=== PATIENT | male | born 1975 | race Caucasian/White ===

== ENCOUNTER 2023-11-27 13:23 | Inpatient (IN) | payer BC ==
--- OUTSIDE RECORDS SUMMARY | 2023-11-27 13:26 | XMS REPORT | Continuity of Care Document ---
Author Name Unknown Address [address] [place], [place] [id number] [facility] thconnect Address [address] [place] [address] [address] [place] [address] Care Team Providers Care [employer] Engraver Hand Name Role Phone AMA Attending Clinician Unavailable ANUP Attending Clinician Unavailable AMA Admitting Clinician Unavailable ANUP Admitting Clinician Unavailable Payers Payer Name Policy Type Policy Number Effective Date Expirati on Date Source [place] [id number] 2020 00:00:00 Problems Condition Name Condition Details Condition Category Status Onset Date Resolution Date Last Treatment Date Treating Clinician Comments Source Tobacco user Tobacco User Problem Active 2018-11 00:00: 00 [facility] Type 1 diabetes mellitus Type 1 Diabetes Mellitus Problem Active [facility] Bipolar disorder Bipolar Disorder Problem Active [facility] Allergies, Adverse Reactions, Alerts Allergy Name Allergy Type Status Severity Reaction(s) Onset Date Inactive Date Treating Clinician Comments Source Amoxicil shima Allergy to substanc e Active Moderate Itching [facility] Metoprol ol Allergy to substanc e Active Moderate Itching [facility] Social History Smoking Status Start Date Stop Date Source Light Tobacco Smoker [facility] Medications Ordered Medication Name Filled Medication Name Start Date Stop Date Current Medication? Ordering Clinician Indication Dosage Frequency Signature (SIG) Comments Components Source sildenafil 100 mg tablet TAKE 1 TABLET BY MOUTH 30 MINUTES PRIOR TO SEXUAL ACTIVITY; NO MORE THAN 1 IN 24 HRS sildenafil 100 mg tablet TAKE 1 TABLET BY MOUTH 30 MINUTES PRIOR TO SEXUAL ACTIVITY; NO MORE THAN 1 IN 24 HRS No sildenafil 100 mg tablet TAKE 1 TABLET BY MOUTH 30 MINUTES PRIOR TO SEXUAL ACTIVITY; NO MORE THAN 1 IN 24 HRS [facility] Tresiba FlexTouch U-100 insulin 100 unit/mL (3 mL) subcutaneou s pen ADMINISTER 20 UNITS UNDER THE SKIN EVERY DAY Tresiba FlexTouch U-100 insulin 100 unit/mL (3 mL) subcutaneou s pen ADMINISTER 20 UNITS UNDER THE SKIN EVERY DAY No Tresiba FlexTouch U-100 insulin 100 unit/mL (3 mL) subcutaneo us pen ADMINISTER 20 UNITS UNDER THE SKIN EVERY DAY [facility] enalapril maleate 10 mg tablet TAKE 1 TABLET(S) EVERY DAY BY ORAL ROUTE. enalapril maleate 10 mg tablet TAKE 1 TABLET(S) EVERY DAY BY ORAL ROUTE. No enalapril maleate 10 mg tablet TAKE 1 TABLET(S) EVERY DAY BY ORAL ROUTE. [facility] Novolog Flexpen U-100 Insulin aspart 100 unit/mL (3 mL) subcutaneou s ADMINISTER 15 UNITS UNDER THE SKIN THREE TIMES DAILY BEFORE MEALS PER SLIDING SCALE Novolog Flexpen U-100 Insulin aspart 100 unit/mL (3 mL) subcutaneou s ADMINISTER 15 UNITS UNDER THE SKIN THREE TIMES DAILY BEFORE MEALS PER SLIDING SCALE No Novolog Flexpen U-100 Insulin aspart 100 unit/mL (3 mL) subcutaneo us ADMINISTER 15 UNITS UNDER THE SKIN THREE TIMES DAILY BEFORE MEALS PER SLIDING SCALE [facility] sildenafil 100 mg tablet TAKE 1 TABLET BY MOUTH 30 MINUTES PRIOR TO SEXUAL ACTIVITY; NO MORE THAN 1 IN 24 HRS sildenafil 100 mg tablet TAKE 1 TABLET BY MOUTH 30 MINUTES PRIOR TO SEXUAL ACTIVITY; NO MORE THAN 1 IN 24 HRS No sildenafil 100 mg tablet TAKE 1 TABLET BY MOUTH 30 MINUTES PRIOR TO SEXUAL ACTIVITY; NO MORE THAN 1 IN 24 HRS [facility] Tresiba FlexTouch U-100 insulin 100 unit/mL (3 mL) subcutaneou s pen ADMINISTER 20 UNITS UNDER THE SKIN EVERY DAY Tresiba FlexTouch U-100 insulin 100 unit/mL (3 mL) subcutaneou s pen ADMINISTER 20 UNITS UNDER THE SKIN EVERY DAY No Tresiba FlexTouch U-100 insulin 100 unit/mL (3 mL) subcutaneo us pen ADMINISTER 20 UNITS UNDER THE SKIN EVERY DAY [facility] enalapril maleate 10 mg tablet TAKE 1 TABLET(S) EVERY DAY BY ORAL ROUTE. enalapril maleate 10 mg tablet TAKE 1 TABLET(S) EVERY DAY BY ORAL ROUTE. No enalapril maleate 10 mg tablet TAKE 1 TABLET(S) EVERY DAY BY ORAL ROUTE. [facility] Novolog FlexPen U-100 Insulin aspart 100 unit/mL (3 mL) subcutaneou s ADMINISTER 15 UNITS UNDER THE SKIN THREE TIMES DAILY BEFORE MEALS PER SLIDING SCALE Novolog FlexPen U-100 Insulin aspart 100 unit/mL (3 mL) subcutaneou s ADMINISTER 15 UNITS UNDER THE SKIN THREE TIMES DAILY BEFORE MEALS PER SLIDING SCALE No Novolog FlexPen U-100 Insulin aspart 100 unit/mL (3 mL) subcutaneo us ADMINISTER 15 UNITS UNDER THE SKIN THREE TIMES DAILY BEFORE MEALS PER SLIDING SCALE [facility] Vital Signs Vital Name Observation Time Observation Value Comments S ource BP Diastolic 2023-04-22 00:00:00 85 mm[Hg] Johnathan lockhartrda [facility] Height 2023-04-22 00:00:00 70 [in_i] Lv orda [facility] BMI (Body Mass Index) 2023-04-22 00:00:00 22.5 kg/m2 [facility] BP Systolic 2023-04-22 00:00:00 136 mm[Hg] Karthikeyan pereza [facility] Body Weight 2023-04-22 00:00:00 2512 [oz_av] Hi chasea [facility] BP Diastolic 2022-03-25 00:00:00 80 mm[Hg] Johnathan lockhartrda [facility] Height 2022-03-25 00:00:00 70 [in_i] Lv orda [facility] BMI (Body Mass Index) 2022-03-25 00:00:00 22.3 kg/m2 [facility] BP Systolic 2022-03-25 00:00:00 133 mm[Hg] Karthikeyan pereza [facility] Body Weight 2022-03-25 00:00:00 2488 [oz_av] Hi tagorda [facility] BP Diastolic 2021-10-08 00:00:00 90 mm[Hg] [place] Height 2021-10-08 00:00:00 70 [in_i] [facility] BMI (Body Mass Index) 2021-10-08 00:00:00 22.5 kg/m2 [facility] BP Systolic 2021-10-08 00:00:00 150 mm[Hg] Napier alfonzo [facility] Body Weight 2021-10-08 00:00:00 2505.6 [oz_av] [place] [facility] BP Diastolic 2021-01-04 00:00:00 86 mm[Hg] [place] Height 2021-01-04 00:00:00 70 [in_i] [facility] BMI (Body Mass Index) 2021-01-04 00:00:00 23.1 kg/m2 [facility] BP Systolic 2021-01-04 00:00:00 151 mm[Hg] Napier alfonzo [facility] Body Weight 2021-01-04 00:00:00 2576 [oz_av] Hi tag[place]a [facility] BP Diastolic 2019-10-17 00:00:00 78 mm[Hg] [place] [facility] Height 2019-10-17 00:00:00 70 [in_i] [facility] BMI (Body Mass Index) 2019-10-17 00:00:00 22.8 kg/m2 [facility] BP Systolic 2019-10-17 00:00:00 136 mm[Hg] Napier alfonzo [facility] Body Weight 2019-10-17 00:00:00 159.1 [lb_av] M [place] [facility] Plan of Care Planned Activity Planned Date Details Comments Source Future Scheduled Test 2023-04-23 00:00:00 lipid panel, serum [code = lipid panel, serum] [facility] Future Scheduled Test 2023-04-23 00:00:00 TSH + free T4, serum [code = TSH + free T4, serum] [facility] Future Scheduled Test 2023-04-23 00:00:00 CBC w/ auto diff [code = CBC w/ auto diff] [facility] Future Scheduled Test 2023-04-23 00:00:00 CMP, serum or plasma [code = CMP, serum or plasma] [facility] Future Scheduled Test 2023-04-23 00:00:00 microalbumin/creatin ine, mass ratio, urine [code = microalbumin/creatin ine, mass ratio, urine] [facility] Future Scheduled Test 2023-04-23 00:00:00 HIV 1 + 2, meaningful use set [code = HIV 1 + 2, meaningful use set] [facility] Test Pending 2023-04-22 00:00:00 HbA1c (hemoglobin A1c), blood [code = HbA1c (hemoglobin A1c), blood] [facility] Encounters Start Date/Time End Date/Time Encounter Type Admission Type Attending [facility] Care Facility Care Department Encounter ID Source 2023-05-13 00:00:00 2023-05-13 00:00:00 Outpatient RODY_NYLA [facility] [id number] [facility] 2023-05-13 00:00:00 2023-05-13 00:00:00 Outpatient CHARLYFRANK_NYLA _[facility] [id number] [facility] 2023-04-22 00:00:00 2023-04-22 00:00:00 Outpatient RODY_NYLA [facility] [id number] [facility] 2023-04-22 00:00:00 2023-04-22 00:00:00 Outpatient RODY_NYLA _[facility] [id number] [facility] 2023-04-22 00:00:00 2023-04-22 00:00:00 Outpatient SHIMEK_NYLA [facility] [id number] [facility] 2023-04-22 00:00:00 2023-04-22 00:00:00 Nyla Mcgarry, FIRESTOPPER TECHNICIAN: [place] [address] , Ph. [facility] 3 [id number] [facility] 2023-03-09 00:00:00 2023-03-09 00:00:00 Outpatient SHIMEK_NYLA [facility] [id number] [facility] 2022-06-24 00:00:00 2022-06-24 00:00:00 Outpatient SHIMEK_NYLA [facility] [id number] [facility] 2022-06-24 00:00:00 2022-06-24 00:00:00 Outpatient SHIMEK_NYLA [facility] [id number] [facility] 2022-04-28 09:19:00 2022-04-28 09:19:00 Outpatient DESAI_RAKES H [facility] [id number] [facility] 2022-04-01 02:36:00 2022-04-01 02:36:00 Outpatient DESAI_RAKES H [facility] [id number] [facility] 2022-03-25 12:49:00 2022-03-25 12:49:00 Outpatient DESAI_RAKES H [facility] [id number] [facility] 2022-03-25 00:00:00 2022-03-25 00:00:00 Nyla Mcgarry, FIRESTOPPER TECHNICIAN: [address] [place] [address] , Ph. [facility] 3 [id number] [facility] 2022-03-22 10:56:00 2022-03-22 10:56:00 Outpatient DESAI_RAKES H [facility] [id number] [facility] 2021-10-10 12:10:00 2021-10-10 12:10:00 Outpatient DESAI_RAKES H [facility] [id number] [facility] 2021-10-08 04:10:00 2021-10-08 04:10:00 Outpatient DESAI_RAKES H [facility] [id number] [facility] 2021-10-08 00:00:00 2021-10-08 00:00:00 Nyla Mcgarry, FIRESTOPPER TECHNICIAN: [place] [address] , [facility]. [facility] [id number] [facility] 2021-10-07 04:07:00 2021-10-07 04:07:00 Outpatient DESAI_RAKES H [facility] [id number] [facility] 2021-03-12 10:31:00 2021-03-12 10:31:00 Outpatient DESAI_RAKES H [facility] [id number] [facility] 2021-03-12 00:00:00 2021-03-12 00:00:00 Floresita Stanley MD: [place] [address] , [facility] [id number] [facility] 2021-02-11 11:22:00 2021-02-11 11:22:00 Outpatient DESAI_RAKES H [facility] [id number] [facility] 2021-02-11 00:00:00 2021-02-11 00:00:00 Floresita Stanley MD: Marquise Khan, [place] [address] , Ph. [facility] [id number] [facility] 2021-02-06 03:44:00 2021-02-06 03:44:00 Outpatient DESAI_RAKES H [facility] [id number] [facility] 2021-01-04 12:20:00 2021-01-04 12:20:00 Outpatient DESAI_RAKES H [facility] [id number] [facility] 2021-01-04 00:00:00 2021-01-04 00:00:00 Nyla Mcgarry, FIRESTOPPER TECHNICIAN: [address] [place] [address] , Ph. [facility] [id number] [facility] 2020-04-24 04:36:00 2020-04-24 04:36:00 Outpatient DESAI_RAKES H [facility] [id number] [facility] 2019-10-17 00:00:00 2019-10-17 00:00:00 Nyla Mcgarry, FIRESTOPPER TECHNICIAN: [address], [address], [place] [address] , Ph. [facility] [id number] [facility] Results Test Description Test Time Test Comments Results Result Co mments Source [facility]
[2023-11-27] MEDS ORDERED: NS 0.9% VIAL 10 ML ONE (14:11)
[2023-11-27] MEDS ORDERED: FAMOTIDINE 20 MG/2 ML VIAL IV ONE (14:11)
[2023-11-27] MEDS ORDERED: KETOROLAC 30 MG/ML INJ ONE (14:11)
[2023-11-27 14:43] LABS: Specific Gravity < 1.005 (1.005-1.030); Urine Bilirubin NEGATIVE (Negative); Urine Blood Negative (Negative); Urine Clarity Clear (Clear); Urine Color Colorless (Yellow); Urine Glucose 4+ (Negative); Urine Protein NEGATIVE (Negative); Urine Urobilinogen Normal (Normal)
[2023-11-27 14:44] LABS: Absolute Lymphocytes (CBC) 1.1 K/uL (0.7-4.9); Hematocrit 45.5 % (39.6-49.0); Lymphocytes % 18.8 % (15.3-44.8); MCV 95.7 fL (80-100); MPV 8.1 fL (7.6-11.3); Platelets 180 thou/uL (152-406); RBC Red Blood Cell Count 4.75 M/uL (4.33-5.43)
[2023-11-27 14:57] LABS: Albumin 4.4 g/dL (3.4-5.0); Bilirubin Total 0.6 mg/dL (0.2-1.0); Potassium 3.9 mEq/L (3.5-5.1); Protein, Total 8.7 g/dL (6.4-8.2)
[2023-11-27] MEDS ORDERED: NA CHLORIDE 0.9% 1,000 ML ONE (15:05)
[2023-11-27] MEDS ORDERED: NA CHLORIDE 0.9% 500 ML ONE (15:05)
--- NOTE | 2023-11-27 15:34 | RAD REPORT ---
EXAM DESCRIPTION: CTAbdomen Pelvis W Contrast - 11/27/2023 3:26 pm CLINICAL HISTORY: Abdominal pain. ABD PAIN COMPARISON: CHEST SINGLE VIEW dated 01/12/2009 TECHNIQUE: Biphasic CT imaging of the abdomen and pelvis was performed with 100 ml non-ionic IV cont rast. All CT scans are performed using dose optimization technique as appropriate and may include automated exposure control or mA/KV adjustment according to patient size. FINDINGS: The lung bases are clear. The liver demonstrates fatty infiltration. Small cyst is present right lobe laterally superiorly. Spl een, pancreas, adrenal glands and kidneys are within normal limits. No bowel obstruction, free air, free fluid or abscess. Small right inguinal hernia containing small i ntestine without incarceration. The appendix is normal. No evidence of significant lymphadenopathy. No suspicious bony findings. IMPRESSION: No acute intra-abdominal or pelvic finding. Prominent fatty liver. Small right inguinal hernia containing unobstructed small bowel.
--- NOTE | 2023-11-27 15:48 | EDPHYS ---
Physician Documentation [facility] [place] Name: Dario Biswas Age: 47 yrs Sex: Male : 1975 Arrival Date: 11/27/2023 Time: 13:23 Bed 13 Private MD: ED Physician Jeff Helm HPI: 11/27 15:32 This 47 yrs old Male presents to ER via Ambulatory with complaints of Abdominal Pain - snw Swelling. 15:32 The patient presents with abdominal pain in the left lower quadrant, blunt injury left snw lower quadrant. Onset: The symptoms/episode began/occurred acutely, 1 month(s) ago, and became persistent. The symptoms radiate to left testicle. Associated signs and symptoms: Pertinent positives: left lower quad pain and radiation to left testicle. The symptoms are described as constant. Severity of pain: At its worst the pain was moderate severe. The patient has not experienced similar symptoms in the past. The patient has not recently seen a physician. one month ago a stove pt was moving down stairs fell onto his left lower quadrant, he was bruised for about a week and then the bruise went away but the pain never really did. . Historical: - Allergies: 14:01 PENICILLINS; cm10 14:01 amoxicillin; cm10 - PMHx: 14:01 Diabetes mellitus; cm10 - Immunization history:: Adult Immunizations up to date. - Social history:: Smoking status: Patient reports the use of cigarette tobacco products, smokes one pack cigarettes per day. ROS: 14:07 Constitutional: Negative for fever, chills, and weight loss, Eyes: Negative for injury, snw pain, redness, and discharge, ENT: Negative for injury, pain, and discharge, Neck: Negative for injury, pain, and swelling, Cardiovascular: Negative for chest pain, palpitations, and edema, Respiratory: Negative for shortness of breath, cough, wheezing, and pleuritic chest pain, Back: Negative for injury and pain, MS/Extremity: Negative for injury and deformity, Skin: Negative for injury, rash, and discoloration, Neuro: Negative for headache, weakness, numbness, tingling, and seizure, Psych: Negative for depression, anxiety, suicide ideation, homicidal ideation, and hallucinations, 14:07 Abdomen/GI: Positive for abdominal pain, 14:07 : Positive for testicular pain with movement, referred from abdomen, Exam: 15:31 Constitutional: This is a well developed, well nourished patient who is awake, alert, snw and in no acute distress. Head/Face: Normocephalic, atraumatic. Eyes: Pupils equal round and reactive to light, extra-ocular motions intact. Lids and lashes normal. Conjunctiva and sclera are non-icteric and not injected. Cornea within normal limits. Periorbital areas with no swelling, redness, or edema. ENT: Nares patent. No nasal discharge, no septal abnormalities noted. Tympanic membranes are normal and external auditory canals are clear. Oropharynx with no redness, swelling, or masses, exudates, or evidence of obstruction, uvula midline. Mucous membranes moist. Neck: Trachea midline, no thyromegaly or masses palpated, and no cervical lymphadenopathy. Supple, full range of motion without nuchal rigidity, or vertebral point tenderness. No Meningismus. Chest/axilla: Normal chest wall appearance and motion. Nontender with no deformity. No lesions are appreciated. Cardiovascular: Regular rate and rhythm with a normal S1 and S2. No gallops, murmurs, or rubs. Normal PMI, no JVD. No pulse deficits. Respiratory: Lungs have equal breath sounds bilaterally, clear to auscultation and percussion. No rales, rhonchi or wheezes noted. No increased work of breathing, no retractions or nasal flaring. Back: No spinal tenderness. No costovertebral tenderness. Full range of motion. Skin: Warm, dry with normal turgor. Normal color with no rashes, no lesions, and no evidence of cellulitis. MS/ Extremity: Pulses equal, no cyanosis. Neurovascular intact. Full, normal range of motion. Neuro: Awake and alert, GCS 15, oriented to person, place, time, and situation. Cranial nerves II-XII grossly intact. Motor strength 5/5 in all extremities. Sensory grossly intact. Cerebellar exam normal. Normal gait. Psych: Awake, alert, with orientation to person, place and time. Behavior, mood, and affect are within normal limits. 15:31 Abdomen/GI: Inspection: abdomen appears normal, Bowel sounds: normal, Palpation: moderate abdominal tenderness, severe abdominal tenderness, in the left lower quadrant, Vital Signs: 13:59 BP 187 / 99; Pulse 96; Resp 18; Temp 98.3; Pulse Ox 100% ; Weight 74.84 kg; Height 5 cm10 ft. 9 in. ; Pain 6/10; 14:17 BP 156 / 97; Pulse 78; Resp 16; Pulse Ox 100% on R/A; me1 14:30 BP 151 / 88; Pulse 80; Resp 18; Pulse Ox 100% on R/A; me1 15:00 BP 160 / 93; Pulse 77; Resp 18; Pulse Ox 100% on R/A; me1 18:45 BP 162 / 98; Pulse 71; Resp 18; Pulse Ox 100% ; me1 13:59 Body Mass Index 24.37 (74.84 kg, 175.26 cm) cm10 13:59 Pain Scale: Adult cm10 MDM: 13:29 Patient medically screened. snw 14:07 ED course: To CT via WC. snw 14:08 Differential diagnosis: Ureterolithiasis, urinary tract infection, hematoma, pulled snw muscle. Data reviewed: vital signs, nurses notes. 11/27 14:00 Order name: CBC with Diff; Complete Time: 14:48 snw 11/27 14:00 Order name: CMP; Complete Time: 15:00 snw 11/27 14:00 Order name: Lipase; Complete Time: 15:00 snw 11/27 14:00 Order name: Urinalysis w/ reflexes; Complete Time: 14:47 snw 11/27 14:00 Order name: CT Abd/Pelvis - IV Contrast Only; Complete Time: 15:35 snw 11/27 14:00 Order name: IV Saline Lock; Complete Time: 14:27 snw 11/27 14:00 Order name: Labs collected and sent; Complete Time: 14:27 snw Administered Medications: 14:27 Drug: Famotidine IVP 20 mg IVP once; dilute with 10 mL 0.9% NaCl; give over 2 minutes cm10 Route: IVP; Site: right forearm; 15:00 Follow up: Response: No adverse reaction me1 14:27 Drug: TORadol - Ketorolac IVP 15 mg IVP once Route: IVP; Site: right forearm; cm10 15:01 Follow up: Response: No adverse reaction; Pain is decreased me1 15:11 Drug: NS 0.9% IV 500 ml IV at bolus once Route: IV; Rate: bolus; Site: right forearm; me1 18:40 Follow up: IV Status: Completed infusion me1 15:11 Drug: NS 0.9% IV 1000 ml IV at 75 ml/hr continuous Route: IV; Rate: 75 ml/hr; Site: me1 right forearm; 19:03 Follow up: IV Status: Infusion continued upon admission me1 16:07 Drug: Insulin Regular Human IVP 2 units IVP once {Co-Signature: db (Aislinn Syed me1 RN).} Route: IVP; Site: right wrist; 16:23 Follow up: Response: No adverse reaction me1 Disposition Summary: 11/27/23 15:48 Hospitalization Ordered Notes: Hospitalization Status: Inpatient Admission snw Provider: Tequila Pritchard Location: Telemetry/MedSurg (Inpatient) snw Condition: Stable snw Problem: new snw Symptoms: are unchanged snw Bed/Room Type: Standard snw Room Assignment: 214(11/27/23 17:44) eb Diagnosis - Lower abdominal pain, unspecified snw - Hypo-osmolality and hyponatremia snw Forms: - Medication Reconciliation Form snw - SBAR form snw - Leadership Thank You Letter snw Addendum: 12/03/2023 09:11 I was immediately available for consultation during this patient's visit. I did not e c2 personally see the patient or discuss the patient with the FRANK. . Signatures: Dispatcher [employer] Darshana Moses FNP-C COMMUNICATIONS TECHNICIAN-Csnw Karin Hawkins Clarissa RN RN cm10 Eileen Cordon RN RN me1 Jeff Helm MD MD 2 Aislinn Syed RN Corrections: (The following items were deleted from the chart) 11/27 17:44 15:48 snw eb
--- NOTE | 2023-11-27 15:48 | ER ---
Nurse's Notes [facility] Name: Dario Biswas Age: 47 yrs Sex: Male : 1975 Arrival Date: 11/27/2023 Time: 13:23 Bed 13 Private MD: Diagnosis: Lower abdominal pain, unspecified;Hypo-osmolality and hyponatremia Presentation: 11/27 13:59 Chief complaint: Patient states: Left sided abdominal pain. Pt states that 1 month ago cm10 he was moving a stove and it fell and hit him in the abdomen. Pt states that he is having burning pain and is also having pain in his testicles. No other symptoms at this time. Coronavirus screen: Vaccine status: Patient reports receiving the 2nd dose of the covid vaccine. Client denies travel out of the [place] in the last 14 days. Ebola Screen: Patient denies travel to an Ebola-affected area in the 21 days before illness onset. No symptoms or risks identified at this time. Initial Sepsis Screen: Does the patient meet any 2 criteria? No. Patient's initial sepsis screen is negative. Does the patient have a suspected source of infection? No. Patient's initial sepsis screen is negative. Risk Assessment: Do you want to hurt yourself or someone else? Patient reports no desire to harm self or others. Onset of symptoms was November 27, 2023. 13:59 Method Of Arrival: Ambulatory 10 13:59 Acuity: TRISTIN 3 cm10 Triage Assessment: 14:01 General: Appears in no apparent distress. comfortable, Behavior is calm, cooperative. cm10 Pain: Complains of pain in left upper quadrant and left lower quadrant Pain currently is 6 out of 10 on a pain scale. Quality of pain is described as burning. Neuro: No deficits noted. Level of Consciousness is awake, alert, obeys commands, Oriented to person, place, time, situation. Cardiovascular: No deficits noted. Denies chest pain, shortness of breath, Patient's skin is warm and dry. Respiratory: No deficits noted. Airway is patent Respiratory effort is even, unlabored, Respiratory pattern is regular, symmetrical. GI: No deficits noted. Abdomen is flat, Abd is soft Abdomen is tender to palpation in left lower quadrant Reports lower abdominal pain, upper abdominal pain. : No deficits noted. Reports pain testicle. Derm: No deficits noted. No signs and/or symptoms reported regarding the dermatologic system. Skin is intact, Skin is pink, warm \T\ dry. Musculoskeletal: No deficits noted. Range of motion: intact in all extremities. Historical: - Allergies: 14:01 PENICILLINS; cm10 14:01 amoxicillin; cm10 - PMHx: 14:01 Diabetes mellitus; cm10 - Immunization history:: Adult Immunizations up to date. - Social history:: Smoking status: Patient reports the use of cigarette tobacco products, smokes one pack cigarettes per day. Screenin:03 [facility] ED Fall Risk Assessment (Adult) History of falling in the last 3 months, cm10 including since admission Yes- single mechanical fall (1 pt) Confusion or Disorientation No (0 pts) Intoxicated or Sedated No (0 pts) Impaired Gait No (0 pts) Mobility Assist Device Used No (0 pt) Altered Elimination No (0 pt) Score/Fall Risk Level 0 - 2 = Low Risk Oriented to surroundings, Maintained a safe environment, Hourly rounding (assess needs \T\ fall precautionary measures) done. Abuse screen: Denies threats or abuse. Denies injuries from another. Nutritional screening: No deficits noted. Tuberculosis screening: No symptoms or risk factors identified. Assessment: 15:01 Reassessment: No changes from previously documented assessment. Patient and/or family me1 updated on plan of care and expected duration. Pain level reassessed. 18:46 GI: Bowel sounds present X 4 quads. me1 Vital Signs: 13:59 BP 187 / 99; Pulse 96; Resp 18; Temp 98.3; Pulse Ox 100% ; Weight 74.84 kg; Height 5 cm10 ft. 9 in. ; Pain 6/10; 14:17 BP 156 / 97; Pulse 78; Resp 16; Pulse Ox 100% on R/A; me1 14:30 BP 151 / 88; Pulse 80; Resp 18; Pulse Ox 100% on R/A; me1 15:00 BP 160 / 93; Pulse 77; Resp 18; Pulse Ox 100% on R/A; me1 18:45 BP 162 / 98; Pulse 71; Resp 18; Pulse Ox 100% ; me1 13:59 Body Mass Index 24.37 (74.84 kg, 175.26 cm) cm10 13:59 Pain Scale: Adult 10 ED Course: 13:27 Patient arrived in ED. mg5 13:28 Negrete, Darshana, FUNCTIONAL SKILLS TUTOR-C [facility] snw 13:29 Jeff Helm MD is Attending Physician. snw 14:01 Triage completed. cm10 14:01 Arm band placed on Patient placed in an exam room, on a stretcher, on pulse oximetry. cm10 14:03 Patient has correct armband on for positive identification. Placed in gown. Bed in low cm10 position. Call light in reach. Side rails up X2. Provided Education on: ER process and procedures. . Pulse ox on. NIBP on. 14:27 CBC with Diff Sent. cm10 14:27 CMP Sent. cm10 14:27 Lipase Sent. cm10 14:27 Urinalysis w/ reflexes Sent. cm10 14:28 Initial lab(s) drawn, by me, sent to lab. Urine collected: clean catch specimen, clear. cm10 Inserted saline lock: 20 gauge in right forearm, using aseptic technique. Blood collected. 15:00 Eileen Cordon, PRASHANT is Primary Nurse. me1 15:28 CT Abd/Pelvis - IV Contrast Only In Process Unspecified. EDMS 15:47 Tequila Pritchard MD is Hospitalizing Provider. snw 18:45 No provider procedures requiring assistance completed. Patient admitted, IV remains in me1 place. Administered Medications: 14:27 Drug: Famotidine IVP 20 mg IVP once; dilute with 10 mL 0.9% NaCl; give over 2 minutes cm10 Route: IVP; Site: right forearm; 15:00 Follow up: Response: No adverse reaction me1 14:27 Drug: TORadol - Ketorolac IVP 15 mg IVP once Route: IVP; Site: right forearm; cm10 15:01 Follow up: Response: No adverse reaction; Pain is decreased me1 15:11 Drug: NS 0.9% IV 500 ml IV at bolus once Route: IV; Rate: bolus; Site: right forearm; me1 18:40 Follow up: IV Status: Completed infusion me1 15:11 Drug: NS 0.9% IV 1000 ml IV at 75 ml/hr continuous Route: IV; Rate: 75 ml/hr; Site: me1 right forearm; 19:03 Follow up: IV Status: Infusion continued upon admission me1 16:07 Drug: Insulin Regular Human IVP 2 units IVP once {Co-Signature: db (Aislinn Syed me1 RN).} Route: IVP; Site: right wrist; 16:23 Follow up: Response: No adverse reaction me1 Medication: 14:03 VIS not applicable for this client. cm10 Outcome: 15:48 Decision to Hospitalize by Provider. snw 18:46 Admitted to Med/surg accompanied by tech, via wheelchair, room 214, with chart, Report me1 called to PRASHANT Navarro 18:46 Condition: stable 18:46 Instructed on the need for admit, 19:03 Patient left the ED. me1 Signatures: Dispatcher [employer] EDMS Darshana Negrete, FUNCTIONAL SKILLS TUTOR-C FUNCTIONAL SKILLS TUTOR-Csnw Kristi Prakash, RN RN cm10 Eileen Cordon RN RN me1 Shyanne Scott mg5 Aislinn Syed RN db
[2023-11-27] MEDS ORDERED: INSULIN REGULAR (HUMAN) 100 UNIT/ML ONE (16:04)
[2023-11-27] MEDS ORDERED: HYDROCODONE/APAP 5/325 MG TAB PO PRN (16:38)
[2023-11-27] MEDS ORDERED: ACETAMINOPHEN 500 MG TAB PO PRN (16:38)
--- NOTE | 2023-11-27 16:50 | P.HP ---
Certification for Inpatient With expected LOS: <2 Midnights Patient will require the following post-hospital care: None Practitioner: I am a practitioner with admitting privileges, knowledge of patient current condition, hospital course, and medical plan of care. Services: Services provided to patient in accordance with Admission requirements found in Title 42 Section 412.3 of the Code of Federal Regulations <Vy Liz - Last Filed: 11/27/23 17:18> Patient History Date of Service: 11/27/23 Reason for admission: Abdominal pain, hyponatremia History of Present Illness: This is a 47-year-old male with a history of insulin-dependent diabetes, alcoholism presented to ER via ambulatory with complaints of abdominal pain. Patient reported abdominal pain on the left lower quadrant started 1 month ago, after a stove fell on him and hit on Left abdomen while he was moving the stove, he was bruised for about a week and the bruise went away but the he continued to have the pain. The severity is 6 out of 10 when it is severe. he has no pain at this time. ED course Vital signs 197/99, pulse 96, respiration 18, temperature 98.3, pulse ox 100% patient's weight 74.84 pain 6 out of 10. Initial laboratory evaluation; CBC is normal, metabolic panel shows hyponatremia sodium level of 124, blood glucose of 237, elevated liver enzymes AST 106, ALT 125, lipase 77. CT abdomen and pelvis with contrast shows no acute intra- abdominal or pelvic finding. Patient was given famotidine 20 mg, ketorolac 15 mg IV, IV fluid normal saline 500 bolus x 1. Admitting the patient with a diagnosis of abdominal pain, hyponatremia, and uncontrolled blood sugar. Home medications list reviewed: Yes - Past Medical/Surgical History -: IDDM -: EtOH abuse -: None Psychosocial/ Personal History: Patient lives with his family at home - Social History Smoking Status: Current every day smoker (1-1/2 pack/day for many years) Smoking therapy provided: Yes Patient receptive to therapy: Yes Alcohol use: Yes CD- Drugs: No Caffeine use: Yes Place of Residence: Home <Bill Lizbrijesh - Last Filed: 11/27/23 17:18> Date of Service: 11/28/23 <Tequila Pritchard - Last Filed: 11/28/23 12:13> Review of Systems 10-point ROS is otherwise unremarkable <Vy Liz - Last Filed: 11/27/23 17:18> Physical Examination - Physical Exam General: Alert, Oriented x3 HEENT: Atraumatic, Normocephalic Neck: Supple, 2+ carotid pulse no bruit Respiratory: Clear to auscultation bilaterally, Normal air movement Cardiovascular: No edema, Normal pulses Capillary refill: <2 Seconds Gastrointestinal: Normal bowel sounds, Soft and benign, Other (Left lower abdominal pain) Musculoskeletal: No clubbing, No swelling Integumentary: No rashes, No breakdown - Studies Laboratory Data (last 24 hrs) 11/27/23 11/27/23 14:20 14:20 WBC 6.10 Hgb 15.7 Hct 45.5 Plt Count 180 Sodium 124 L Potassium 3.9 BUN 10 Creatinine 0.93 Glucose 237 H Total Bilirubin 0.6 AST 106 H ALT 125 H Alkaline Phosphatase 59 Lipase 77 H <Vy Liz - Last Filed: 11/27/23 17:18> - Studies Laboratory Data (last 24 hrs) 11/27/23 11/27/23 14:20 14:20 WBC 6.10 Hgb 15.7 Hct 45.5 Plt Count 180 Sodium 124 L Potassium 3.9 BUN 10 Creatinine 0.93 Glucose 237 H Total Bilirubin 0.6 AST 106 H ALT 125 H Alkaline Phosphatase 59 Lipase 77 H <Tequila Pritchard - Last Filed: 11/28/23 12:13> Assessment and Plan - Problems (Diagnosis) (1) Left lower quadrant abdominal pain Status: Acute (2) Hyponatremia with decreased serum osmolality Status: Acute (3) DM2 (diabetes mellitus, type 2) Status: Chronic Qualifiers: Diabetes mellitus rat exterminator insulin use: with rat exterminator use Diabetes mellitus complication status: with other specified complication Qualified Code(s): E11.69 - Type 2 diabetes mellitus with other specified complication; Z79.4 - MCC (current) use of insulin (4) Alcoholism Status: Chronic (5) Cigarette nicotine dependence Status: Chronic Qualifiers: Substance use status: uncomplicated Qualified Code(s): F17.210 - Nicotine dependence, cigarettes, uncomplicated (6) Transaminitis Status: Acute - Plan * Left lower quadrant abdominal pain:Admitted with a left lower quadrant abdominal pain after object fell on the left abdomen almost a month ago, patient reports experiencing on and off pain on the left side.CT abdomen and pelvis with contrast shows no acute intra-abdominal or pelvic finding. * Initial vital signs 197/99, pulse 96, respiration 18, temperature 98.3, pulse ox 100% patient's weight 74.84 pain 6 out of 10. Pressures has come down to normal at this time. Will continue to monitor vital signs closely * Hyponatremia : Serum sodium 124, patient is alert and oriented, NS started at 100 mL/h, will recheck the sodium in the morning * Type 2 diabetes insulin-dependent with hyperglycemia: Blood sugar check before meals and at bedtime with aggressive sliding scale SSI, check A1c in the morning, hypoglycemic protocol precautions, diabetic diet * Alcoholism: Patient has alcoholic dependence drinks 6 packs/day or more for a long time-recommended to cut down or abstain from alcohol patient voiced understanding and willing to try * Current everyday smoker; patient smokes a pack and 1/2 cigarette/day for more than 30 years, secondary to cessation discussed less than 10 minutes, patient willing to quit cigarette, nicotine patch ordered * Transaminitis: Mild, will continue to monitor CODE STATUS full code DVT prophylaxis Lovenox Diet diabetic diet Discharge Plan: Home Plan to discharge in: 48 Hours - Advance Directives Does patient have a Living Will: No Does patient have a Durable POA for Healthcare: No - Code Status/Comfort Care Code Status Assessed: Yes (Full code) Code Status: Full Code Physician Review: Patient Assessed, Agree with Above Assessment and Plan Critical Care: No Time Spent Managing Pts Care (In Minutes): 55 (Minutes) <Vy Liz - Last Filed: 11/27/23 17:18> - Plan Pt seen and examined. I agree with the note by the RESEARCH COMPUTING SPECIALIST. Pt presents with left lower abd pain that started about a month ago after an oven fell on his LLQ. The LLQ pain became intermittent and progressively worsened over the past day. On admission, CT abd is unremarkable. Lab studies show Na 124. At bedside, pt is in NAD A/P: LLQ abd pain: Unknown etiology. CT abd is unremarkable. Likely due to the incident that happened a month ago. Will continue IVF andprn pain med. Hyponatremia: Na is 124. Will give IVF and monitor Na level. Right inguinal hernia; Per CT abd. Will follow up on outpt. DVT ppx: SCD Code: full <Tequila Pritchard - Last Filed: 11/28/23 12:13>
[2023-11-27] MEDS ORDERED: SODIUM CHLORIDE 0.9% 10ML INJ IV PRN (17:38)
[2023-11-27] MEDS: NA CHLORIDE 0.9% 1,000 ML IV SCH (21:16)
[2023-11-27 21:22] VITALS: O2SAT 100
[2023-11-28 00:23] VITALS: BMI 23.6
[2023-11-28 04:19] LABS: Absolute Lymphocytes (CBC) 1.1 K/uL (0.7-4.9); Hematocrit 40.9 % (39.6-49.0); Lymphocytes % 34.9 % (15.3-44.8); MCV 94.7 fL (80-100); MPV 8.5 fL (7.6-11.3); Platelets 175 thou/uL (152-406); RBC Red Blood Cell Count 4.32 M/uL (4.33-5.43)
[2023-11-28 04:41] LABS: Albumin 3.6 g/dL (3.4-5.0); Bilirubin Direct 0.2 mg/dL (0-0.2); Bilirubin Indirect, Calculated 0.4 mg/dL (0.2-0.8); Bilirubin Total 0.6 mg/dL (0.2-1.0); Phosphorus 4.2 mg/dL (2.5-4.9); Potassium 3.7 mEq/L (3.5-5.1); Protein, Total 7.1 g/dL (6.4-8.2)
[2023-11-28 04:42] LABS: Magnesium 2.2 mg/dL (1.6-2.4)
[2023-11-28] MEDS: NA CHLORIDE 0.9% 1,000 ML IV SCH (07:03)
[2023-11-28 08:52] VITALS: BP 140/80; TEMP 97
[2023-11-28] MEDS ORDERED: ENOXAPARIN 40 MG/0.4 ML SQ SCH (09:00)
[2023-11-28] MEDS ORDERED: POTASSIUM CL SA 10 MEQ TAB PO ONE (09:00)
[2023-11-28] MEDS ORDERED: PANTOPRAZOLE 40 MG INJ IVP SCH (09:00)
--- NOTE | 2023-11-28 09:52 | P.DS ---
Admission Date: 11/27/23 Discharge Date: 11/28/23 Disposition: ROUTINE DISCHARGE Discharge Condition: GOOD Reason for Admission: Abdominal pain, hyponatremia Brief History of Present Illness: This is a 47-year-old male with a history of insulin-dependent diabetes, alcoholism presented to ER via ambulatory with complaints of abdominal pain. Patient reported abdominal pain on the left lower quadrant started 1 month ago, after a stove fell on him and hit on Left abdomen while he was moving the stove, he was bruised for about a week and the bruise went away but the he continued to have the pain. The severity is 6 out of 10 when it is severe. he has no pain at this time. ED course Vital signs 197/99, pulse 96, respiration 18, temperature 98.3, pulse ox 100% patient's weight 74.84 pain 6 out of 10. Initial laboratory evaluation; CBC is normal, metabolic panel shows hyponatremia sodium level of 124, blood glucose of 237, elevated liver enzymes AST 106, ALT 125, lipase 77. CT abdomen and pelvis with contrast shows no acute intra- abdominal or pelvic finding. Patient was given famotidine 20 mg, ketorolac 15 mg IV, IV fluid normal saline 500 bolus x 1. Admitting the patient with a diagnosis of abdominal pain, hyponatremia, and uncontrolled blood sugar. Hospital Course: Pt was admitted with LLQ abd pain. It started after an oven fell on his LLQ about 1 month ago. The pain was intermittent and progressively worsened the day before this admission. On admission, CT abd shows and pelvis with contrast shows no acute intra-abdominal or pelvic finding. It showed a small right inguinal hernia with unobstructed small bowel. Lab studies showed Na 124. We admitted pt and treated hyponatremia with IVF. The sodium improved and pt did not have any abdominal pain during this admission. He was advised to wear loose clothes and return to the ER if the abdomnal pain worsened. pt was in NAD prior to discharge. . Vital Signs/Physical Exam: Temp Pulse Resp BP Pulse Ox 97.0 F 61 14 140/80 95 11/28/23 08:00 11/28/23 08:00 11/28/23 08:00 11/28/23 08:00 11/28/23 08:00 Laboratory Data at Discharge: WBC 3.10 thou/uL (4.3-10.9) L 11/28/23 03:23 Hgb 14.3 g/dL (13.6-17.9) D 11/28/23 03:23 Hct 40.9 % (39.6-49.0) 11/28/23 03:23 Plt Count 175 thou/uL (152-406) 11/28/23 03:23 Sodium 133 mEq/L (136-145) L D 11/28/23 03:23 Potassium 3.7 mEq/L (3.5-5.1) 11/28/23 03:23 BUN 8 mg/dL (7-18) 11/28/23 03:23 Creatinine 0.72 mg/dL (0.70-1.30) 11/28/23 03:23 Glucose 109 mg/dL (74-106) H 11/28/23 03:23 Phosphorus 4.2 mg/dL (2.5-4.9) 11/28/23 03:23 Magnesium 2.2 mg/dL (1.6-2.4) 11/28/23 03:23 Total Bilirubin 0.6 mg/dL (0.2-1.0) 11/28/23 03:23 AST 73 U/L (15-37) H 11/28/23 03:23 ALT 96 U/L (16-61) H 11/28/23 03:23 Alkaline Phosphatase 51 U/L (45-117) 11/28/23 03:23 Triglycerides 133 mg/dL (<150) 11/28/23 03:23 Cholesterol 184 mg/dL (<200) 11/28/23 03:23 HDL Cholesterol 49 mg/dL (40-60) 11/28/23 03:23 Cholesterol/HDL Ratio 3.76 11/28/23 03:23 Lipase 77 U/L (13-75) H 11/27/23 14:20 Physician Discharge Instructions: Continue ad mikki activity. Wear boxers. Follow up with PCP within 1 - 2 weeks. Come back to the ER if you notice worsening abdominal pain Followup: REYMUNDO DWYER [Primary Care Provider] -
== END 2023-11-28 10:40 | disposition home or self-care (01) | DRG 394 ==
LOC: ER 13:23 → ERHOLD 16:42 → 2ND 18:42
PROVIDERS: ADMIT Hospitalist; ATTEND Hospitalist
DX: K40.30 Unilateral inguinal hernia, with obstruction, without gangrene, not specified as recurrent (principal); E87.1 Hypo-osmolality and hyponatremia; E11.69 Type 2 diabetes mellitus with other specified complication; F10.20 Alcohol dependence, uncomplicated; F17.210 Nicotine dependence, cigarettes, uncomplicated; R74.01 Elevation of levels of liver transaminase levels; Z88.1 Allergy status to other antibiotic agents; Z88.0 Allergy status to penicillin
CPT/HCPCS: 36415; 74177; 80053; 80061; 81003; 82248; 82947; 83690; 83735; 84100; 85025; 99285; A4216; C9113; J1650; J1815; J7030; J7040; Q9967

== ENCOUNTER 2025-04-01 19:53 | Emergency (ER) | payer BC ==
--- OUTSIDE RECORDS SUMMARY | 2025-04-01 19:55 | XMS REPORT | Continuity of Care Document ---
Author Name Unknown Address [address] [place] [id number] [facility] Address [address] [place] [address] [address] [place] [address] Care Team Providers Care Fractionation Supervisor Name Role Phone AMA Attending Clinician Unavailable ANUP Attending Clinician Unavailable AMA Admitting Clinician Unavailable ANUP Admitting Clinician Unavailable Payers Payer Name Policy Type Policy Number Effective Date Expirati on Date Source [place] [id number] 2020 00:00:00 Problems Condition Name Condition Details Condition Category Status Onset Date Resolution Date Last Treatment Date Treating Clinician Comments Source Hyponatrem ia Hyponatrem ia Problem Active 04-26 00:00: 00 [facility] Increased liver function Increased Liver Function Problem Active 04-26 00:00: 00 [facility] Tobacco user Tobacco User Problem Active 2018-11 [...] shima Allergy to substanc e Active Moderate severity Itching [facility] Metoprol ol Allergy to substanc e Active Moderate severity Itching [facility] Social History Smoking Status Start Date Stop Date Source Light Tobacco Smoker [facility] Medications Ordered Medication Name Filled Medication Name Start Date Stop Date Current Medication? Ordering Clinician Indication Dosage Frequency Signature (SIG) Comments Components Source sildenafil 100 mg tablet TAKE 1 TABLET BY MOUTH 30 MINUTES BEFORE SEXUAL ACTIVITY. NO MORE THAN 1 IN 24 HOURS sildenafil 100 mg tablet TAKE 1 TABLET BY MOUTH 30 MINUTES BEFORE SEXUAL ACTIVITY. NO MORE THAN 1 IN 24 HOURS No sildenafil 100 mg tablet TAKE 1 TABLET BY MOUTH 30 MINUTES BEFORE SEXUAL ACTIVITY. NO MORE THAN 1 IN 24 HOURS [facility] Tresiba FlexTouch U-100 insulin 100 unit/mL (3 mL) subcutaneou s pen ADMINISTER 20 UNITS UNDER THE SKIN EVERY DAY Tresiba FlexTouch U-100 insulin 100 unit/mL (3 mL) subcutaneou s pen ADMINISTER 20 UNITS UNDER THE SKIN EVERY DAY No Tresiba FlexTouch U-100 insulin 100 unit/mL (3 mL) subcutaneo us pen ADMINISTER 20 UNITS UNDER THE SKIN EVERY DAY [facility] insulin aspart (U-100) 100 unit/mL (3 mL) subcutaneou s pen ADMINISTER UP TO 15 UNITS UNDER THE SKIN THREE TIMES DAILY BEFORE MEALS PER SLIDING SCALE insulin aspart (U-100) 100 unit/mL (3 mL) subcutaneou s pen ADMINISTER UP TO 15 UNITS UNDER THE SKIN THREE TIMES DAILY BEFORE MEALS PER SLIDING SCALE No insulin aspart (U-100) 100 unit/mL (3 mL) subcutaneo us pen ADMINISTER UP TO 15 UNITS UNDER THE SKIN THREE TIMES DAILY BEFORE MEALS PER SLIDING SCALE [facility] atorvastati n 40 mg tablet TAKE 1 TABLET BY MOUTH AT BEDTIME atorvastati n 40 mg tablet TAKE 1 TABLET BY MOUTH AT BEDTIME No atorvastat in 40 mg tablet TAKE 1 TABLET BY MOUTH AT BEDTIME [facility] ipratropium bromide 42 mcg (0.06 %) nasal spray USE 2 SPRAYS IN EACH NOSTRIL FOUR TIMES DAILY NEEDED FOR CONGESTION OR RUNNY NOSE ipratropium bromide 42 mcg (0.06 %) nasal spray USE 2 SPRAYS IN EACH NOSTRIL FOUR TIMES DAILY NEEDED FOR CONGESTION OR RUNNY NOSE No ipratropiu m bromide 42 mcg (0.06 %) nasal spray USE 2 SPRAYS IN EACH NOSTRIL FOUR TIMES DAILY NEEDED FOR CONGESTION OR RUNNY NOSE [facility] levocetiriz ine 5 mg tablet TAKE 1 TABLET BY MOUTH DAILY IN THE EVENING NEEDED FOR CONGESTION OR RUNNY NOSE levocetiriz ine 5 mg tablet TAKE 1 TABLET BY MOUTH DAILY IN THE EVENING NEEDED FOR CONGESTION OR RUNNY NOSE No levocetiri zine 5 mg tablet TAKE 1 TABLET BY MOUTH DAILY IN THE EVENING NEEDED FOR CONGESTION OR RUNNY NOSE [facility] FreeStyle Yakelin 3 Plus Sensor device USE DIRECTED FreeStyle Yakelin 3 Plus Sensor device USE DIRECTED No FreeStyle Yakelin 3 Plus Sensor device USE DIRECTED [facility] losartan 25 mg tablet Take 1 tablet every day by oral route. losartan 25 mg tablet Take 1 tablet every day by oral route. No 1 Q1D losartan 25 mg tablet Take 1 tablet every day by oral route. [facility] Immunizations Ordered Immunization Name Filled Immunization Name Date Status Comments Source COVID-19, mRNA, LNP-S, PF, 100 mcg/0.5 mL dose (Moderna) COVID-19, mRNA, LNP-S, PF, 100 mcg/0.5 mL dose (Moderna) Unknown [facility] Tdap Tdap Unknown [facility] Vital Signs Vital Name Observation Time Observation Value Comments S ource Height 2025-03-07 00:00:00 70 [in_i] [facility] BP Diastolic 2025-03-07 00:00:00 91 mm[Hg] [facility] BMI (Body Mass Index) 2025-03-07 00:00:00 22.6 kg/m2 [facility] BP Systolic 2025-03-07 00:00:00 142 mm[Hg] [facility] Body Weight 2025-03-07 00:00:00 2516 [oz_av] [facility] BMI (Body Mass Index) 2025-02-20 00:00:00 21.4 kg/m2 [facility] Height 2025-02-20 00:00:00 70 [in_i] [facility] BP Diastolic 2025-02-20 00:00:00 80 mm[Hg] [facility] BP Systolic 2025-02-20 00:00:00 144 mm[Hg] [facility] Body Weight 2025-02-20 00:00:00 2384 [oz_av] [facility] BP Systolic 2024-04-27 00:00:00 146 mm[Hg] [facility] Body Weight 2024-04-27 00:00:00 2496 [oz_av] [facility] Height 2024-04-27 00:00:00 70 [in_i] [facility] BMI (Body Mass Index) 2024-04-27 00:00:00 22.4 kg/m2 [facility] BP Diastolic 2024-04-27 00:00:00 83 mm[Hg] [facility] BP Diastolic 2023-04-22 00:00:00 85 mm[Hg] [facility] Height 2023-04-22 00:00:00 70 [in_i] [facility] BMI (Body Mass Index) 2023-04-22 00:00:00 22.5 kg/m2 [facility] BP Systolic 2023-04-22 00:00:00 136 mm[Hg] [facility] Body Weight 2023-04-22 00:00:00 2512 [oz_av] [facility] BP Diastolic 2022-03-25 00:00:00 80 mm[Hg] [facility] Height 2022-03-25 00:00:00 70 [in_i] [facility] BMI (Body Mass Index) 2022-03-25 00:00:00 22.3 kg/m2 [facility] BP Systolic 2022-03-25 00:00:00 133 mm[Hg] [facility] Body Weight 2022-03-25 00:00:00 2488 [oz_av] [facility] BP Diastolic 2021-10-08 00:00:00 90 mm[Hg] [facility] Height 2021-10-08 00:00:00 70 [in_i] [facility] BMI (Body Mass Index) 2021-10-08 00:00:00 22.5 kg/m2 [facility] BP Systolic 2021-10-08 00:00:00 150 mm[Hg] [facility] Body Weight 2021-10-08 00:00:00 2505.6 [oz_av] [facility] BP Diastolic 2021-01-04 00:00:00 86 mm[Hg] [facility] Height 2021-01-04 00:00:00 70 [in_i] [facility] BMI (Body Mass Index) 2021-01-04 00:00:00 23.1 kg/m2 [facility] BP Systolic 2021-01-04 00:00:00 151 mm[Hg] [facility] Body Weight 2021-01-04 00:00:00 2576 [oz_av] [facility] BP Diastolic 2019-10-17 00:00:00 78 mm[Hg] [facility] Height 2019-10-17 00:00:00 70 [in_i] [facility] BMI (Body Mass Index) 2019-10-17 00:00:00 22.8 kg/m2 [facility] BP Systolic 2019-10-17 00:00:00 136 mm[Hg] [facility] Body Weight 2019-10-17 00:00:00 159.1 [lb_av] [facility] Procedures Procedure Date / Time Performed Performing Clinicia n Source US, liver 2025-03-07 00:00:00 [facility] Encounters Start Date/Time End Date/Time Encounter Type Admission Type Attending Clinicians Care Facility Care Department Encounter ID Source 2025-03-07 00:00:00 2025-03-07 00:00:00 Ahmet Mcgarry, CUST[employer]S AND BORDER PROTECTION INSPECTOR: [place] [address] , Ph. [facility] 3 [id number] [facility] 2025-02-20 00:00:00 2025-02-20 00:00:00 Ahmet Mcgarry, CUSTOMS AND BORDER PROTECTION INSPECTOR: [place] [address] , Ph. [place] [id number] [facility] 2024-04-27 00:00:00 2024-04-27 00:00:00 Ahmet Mcgarry, CUSTOMS AND BORDER PROTECTION INSPECTOR: [address] [address] , Ph. [facility] [id number] [facility] 2023-05-13 00:00:00 2023-05-13 00:00:00 Outpatient SHIMEK_AHMET MORAN [facility] [id number] [facility] 2023-05-13 00:00:00 2023-05-13 00:00:00 Outpatient SHIMEK_AHMET MORAN [facility] [id number] [facility] 2023-04-22 00:00:00 2023-04-22 00:00:00 Outpatient SHIMEK_AHMET MORAN [facility] [id number] [facility] 2023-04-22 00:00:00 2023-04-22 00:00:00 Outpatient SHIMEK_AHMET MORAN [facility] [id number] [facility] 2023-04-22 00:00:00 2023-04-22 00:00:00 Outpatient SHIMEK_AHMET MORAN [facility] [id number] [facility] 2023-04-22 00:00:00 2023-04-22 00:00:00 Ahmet Mcgarry, CUST[employer]S AND BORDER PROTECTION INSPECTOR: [address] [place] [address] , Ph. [facility] [place] [id number] [facility] 2023-03-09 00:00:00 2023-03-09 00:00:00 Outpatient CHARLYEK_AHMET MORAN [facility] [id number] [facility] 2022-06-24 00:00:00 2022-06-24 00:00:00 Outpatient SHIMEK_AHMET MORAN [facility] [id number] [facility] 2022-06-24 00:00:00 2022-06-24 00:00:00 Outpatient SHIMEK_AHMET MORAN [facility] [id number] [facility] 2022-04-28 09:19:00 2022-04-28 09:19:00 Outpatient DESAI_RAKES H [facility] [id number] [facility] 2022-04-01 02:36:00 2022-04-01 02:36:00 Outpatient DESAI_RAKES H [facility] [id number] [facility] 2022-03-25 12:49:00 2022-03-25 12:49:00 Outpatient DESAI_RAKES H [facility] [id number] [facility] 2022-03-25 00:00:00 2022-03-25 00:00:00 Ahmet Mcgarry, C[employer]S AND BORDER PROTECTION INSPECTOR: [address] [address] , Ph. [facility] 3 [phone] [facility] 2022-03-22 10:56:00 2022-03-22 10:56:00 Outpatient DESAI_RAKES H [facility] [id number] [facility] 2021-10-10 12:10:00 2021-10-10 12:10:00 Outpatient DESAI_RAKES H [facility] [id number] [facility] 2021-10-08 04:10:00 2021-10-08 04:10:00 Outpatient DESAI_RAKES H [facility] [id number] [facility] 2021-10-08 00:00:00 2021-10-08 00:00:00 Ahmet Mcgarry, JAKOB: [address] [address] , Ph. [facility] 3 [phone] [facility] 2021-10-07 04:07:00 2021-10-07 04:07:00 Outpatient DESAI_RAKES H [facility] [id number] [facility] 2021-03-12 10:31:00 2021-03-12 10:31:00 Outpatient DESAI_RAKES H [facility] [id number] [facility] 2021-03-12 00:00:00 2021-03-12 00:00:00 Floresita Stanley MD: [place] [address] , Ph. [facility] [id number] [facility] 2021-02-11 11:22:00 2021-02-11 11:22:00 Outpatient DESAI_RAKES H [facility] [id number] [facility] 2021-02-11 00:00:00 2021-02-11 00:00:00 Floresita Stanley MD: [place] [address] , Ph. [facility] [phone] [facility] 2021-02-06 03:44:00 2021-02-06 03:44:00 Outpatient DESAI_RAKES H [facility] [id number] [facility] 2021-01-04 12:20:00 2021-01-04 12:20:00 Outpatient DESAI_RAKES H [facility] [id number] [facility] 2021-01-04 00:00:00 2021-01-04 00:00:00 Ahmet Mcgarry, [employer] BORDER PROTECTION INSPECTOR: [place] [address] , Ph. [facility] [id number] [facility] 2020-04-24 04:36:00 2020-04-24 04:36:00 Outpatient DESAI_RAKES H [facility] [id number] [facility] 2019-10-17 00:00:00 2019-10-17 00:00:00 Ahmet Mcgarry, CUSTOMS AND BORDER PROTECTION INSPECTOR: Marquise Khan, [facility] [address], [place] [address] , Ph. [facility] [phone] [facility] Results Test Description Test Time Test Comments Results Result Co mments Source [facility] ProgramCB W Auto Differential panel - Blood 2025-02-21 00:00:00* Test Item Value Reference Range Interpretation Comme nts Leukocytes [#/volume] in Blo od by Automated count (test code = 6690-2) 3.9 x10e3/uL 3.4-10.8 Erythrocytes [#/volume] in Blood by Automated count (test code = 789-8) 4.87 x10e6/uL 4.14-5.80 Hemoglobin [Mass/volume] in Blood (test code = 718-7) 16.1 g/dL 13.0-17.7 Hematocrit [Volume Fraction] of Blood by Automated count (test code = 4544-3) 46.2 % 37.5-51.0 MCV [Entitic mean volume] in Red Blood Cells by Automated count (test code = 787-2) 95 fL 79-97 MCH [Entitic mass] by Automa lew count (test code = 785-6) 33.1 pg 26.6-33.0 H MCHC [Entitic Mass/volume] i n Red Blood Cells by Automated count (test code = 786-4) 34.8 g/dL 31.5-35.7 Erythrocyte [DistWidth] in R ed Blood Cells by Automated count (test code = 788-0) 12.6 % 11.6-15.4 Platelets [#/volume] in Bloo d by Automated count (test code = 777-3) 212 x10e3/uL 150-450 Neutrophils/Leukocytes in Bl ood by Automated count (test code = 770-8) 60 % not estab. Lymphocytes/100 leukocytes i n Blood by Automated count (test code = 736-9) 24 % not estab. Monocytes/Leukocytes in Bloo d by Automated count (test code = 5905-5) 14 % not estab. Eosinophils/100 leukocytes i n Blood by Automated count (test code = 713-8) 1 % not estab. Basophils/Leukocytes in Bloo d by Automated count (test code = 706-2) 1 % not estab. immature cells (test code = immature cells) C[employer] B[employer] PROTECTION INSPECTOR Neutrophils [#/volume] in Bl ood by Automated count (test code = 751-8) 2.3 x10e3/uL 1.4-7.0 Lymphocytes [#/volume] in Bl ood by Automated count (test code = 731-0) 0.9 x10e3/uL 0.7-3.1 Monocytes [#/volume] in Bloo d by Automated count (test code = 742-7) 0.5 x10e3/uL 0.1-0.9 Eosinophils [#/volume] in Bl ood by Automated count (test code = 711-2) 0.0 x10e3/uL 0.0-0.4 Basophils [#/volume] in Bloo d by Automated count (test code = 704-7) 0.0 x10e3/uL 0.0-0.2 Immature granulocytes/Leukocytes in Blood by Automated count (test code = 12935-9) 0 % not estab. Immature granulocytes [#/volume] in Blood by Automated count (test code = 16007-5) 0.0 x10e3/uL 0.0-0.1 Nucleated erythrocytes/Leukocytes [Ratio] in Blood by Automated count (test code = 58018-5) C[employer] PROTECTION INSPECTOR Morphology [Interpretation] in Blood Narrative (test code = 20986-9) C[employer]S AND BORDER PROTECTION INSPECTOR [facility] Outreach ProgramComprehensive metabolic 2000 panel - Serum or [id number] 00:00:00* Test Item Value Reference Range Interpretation Comme nts Glucose [Mass/volume] in Serum or Plasma (test code = 2345-7) 143 mg/dL 70-99 H Urea nitrogen [Mass/volume] in Serum or Plasma (test code = 3094-0) 6 mg/dL 6-24 Creatinine [Mass/volume] in Serum or Plasma (test code = 2160-0) 0.74 mg/dL 0.76-1.27 L Glomerular filtration rate [Volume Rate/Area] in Serum, Plasma or Blood by Creatinine-based formula (CKD-EPI 2020)/1.73 sq M (test code = 25083-0) 112 mL/min/1.73 >59 Urea nitrogen/Creatinine [Mass Ratio] in Serum or Plasma (test code = 3097-3) 8 9-20 L Sodium [Moles/volume] in Serum or Plasma (test code = 2951-2) 130 mmol/L 134-144 L Potassium [Moles/volume] in Serum or Plasma (test code = 2823-3) 4.4 mmol/L 3.5-5.2 Chloride [Moles/volume] in Serum or Plasma (test code = 2074-0) 90 mmol/L 96-106 L Carbon dioxide, total [Moles/volume] in Serum or Plasma (test code = 2027-) 23 mmol/L 20-29 Calcium [Mass/volume] in Serum or Plasma (test code = 97098-7) 9.9 mg/dL 8.7-10.2 Protein [Mass/volume] in Serum or Plasma (test code = 2885-2) 7.8 g/dL 6.0-8.5 Albumin [Mass/volume] in Serum or Plasma (test code = 1751-7) 5.2 g/dL 4.1-5.1 H Globulin [Mass/volume] in Serum by calculation (test code = 74704-7) 2.6 g/dL 1.5-4.5 Bilirubin.total [Mass/volume ] in Serum or Plasma (test code = 1974-) 0.5 mg/dL 0.0-1.2 Alkaline phosphatase [Enzymatic activity/volume] in Serum or Plasma (test code = 6768-6) 64 IU/L 44-121 Aspartate aminotransferase [Enzymatic activity/volume] in Serum or Plasma (test code = 192-8) 99 IU/L 0-40 H Alanine aminotransferase [Enzymatic activity/volume] in Serum or Plasma (test code = 1742-6) 58 IU/L 0-44 H [facility] 1996 panel - Serum or Plasma 2025-02-21 00:00:00* Test Item Value Reference Range Interpretation Comme nts Cholesterol [Mass/volume] in Serum or Plasma (test code = 2092-3) 202 mg/dL 100-199 H Triglyceride [Mass/volume] i n Serum or Plasma (test code = 2571-8) 113 mg/dL 0-149 Cholesterol in HDL [Mass/vol ume] in Serum or Plasma (test code = 2084-9) 58 mg/dL >39 Cholesterol in VLDL [Mass/vo lume] in Serum or Plasma by calculation (test code = 89943-8) 20 mg/dL 5-40 Cholesterol in LDL [Mass/vol ume] in Serum or Plasma by calculation (test code = 48883-5) 124 mg/dL 0-99 H LDL calc comment: (test code = LDL calc comment:) C[employer] B[employer] PROTECTION INSPECTOR [facility] CenterHemoglobin A1c/Hemoglobin.total in [id number] 00:00:00* Test Item Value Reference Range Interpretation Comme nts Hemoglobin A1c/Hemoglobin.to aysha in Blood (test code = 4548-4) 8.7 % 4.8-5.6 H Glucose mean value [Mass/vol ume] in Blood Estimated from glycated hemoglobin (test code = 59822-4) 203 mg/dL [facility] patient [id number] 00:00:00* Test Item Value Reference Range Interpretation Comme nts pdf (test code = pdf) NOT APPLICABLE [facility]25-Hydroxyvitamin D3+25- Hydroxyvitamin D2 [Mass/volume] in Serum or [id number] 00:00:00* Test Item Value Reference Range Interpretation Comme nts 25-Hydroxyvitamin D3+25-Hydroxyvitamin D2 [Mass/volume] in Serum or Plasma (test code = 59336-3) 29.3 NG/mL 30.0-100.0 L [facility]erc[facility] [id number] 00:00:00* Test Item Value Reference Range Interpretation Comme nts Interpretation and review of laboratory results (test code = 11217-0) NOTE [facility] CenterGlucose [Mass/volume] in Capillary [id number] 14:42:24* Test Item Value Reference Range Interpretation Comme nts Blood Glucose: mg/dl (test c ode = Blood Glucose: mg/dl) 189 [facility]
[2025-04-01] MEDS ORDERED: IBUPROFEN 400 MG TAB ONE (20:28)
[2025-04-01] MEDS ORDERED: HYDROCODONE/APAP 7.5/325 MG TAB ONE (20:28)
--- NOTE | 2025-04-01 21:39 | RAD REPORT ---
EXAM: XR RIGHT HAND HISTORY: Pain. PAIN COMPARISON: None TECHNIQUE: Multiple projections of the right hand submitted. FINDINGS: Soft tissue swelling is seen in the palm region and thenar region. No fracture, dislocation or aggressive marrow lesion. No soft tissue gas or radiopaque foreign body seen.
[2025-04-01] MEDS ORDERED: LIDOCAINE 2% MPF 5 ML VIAL ONE (22:02)
--- NOTE | 2025-04-01 22:15 | EDPHYS ---
Physician Documentation [facility] Name: Dario Biswas Age: 49 yrs Sex: Male : 1975 Arrival Date: 04/01/2025 Time: 19:53 Bed 11 Private MD: ED Physician Cristian Cruz HPI: 04/01 20:33 This 49 yrs old Male presents to ER via Ambulatory with complaints of Hand Pain, Hand cp Swelling. 20:33 The patient or guardian reports pain, swelling, tenderness. The complaints affect the cp long side of right hand. 20:33 Context: resulted from an unknown cause. Onset: The symptoms/episode began/occurred 4 cp day(s) ago, and became worse today. Associated signs and symptoms: Pertinent negatives: cyanosis distally, decreased sensation distally, fever. Historical: - Allergies: 20:16 Amoxicillin; dd2 20:16 PENICILLINS; dd2 - PMHx: 20:16 diabetes mellitus; Hyperthyroidism; dd2 - PSHx: 20:16 None; dd2 - Immunization history:: Adult Immunizations up to date. - Infectious Disease History:: Denies. - Social history:: Smoking status: Patient reports the use of cigarette tobacco products, smokes one-half pack cigarettes per day. ROS: 20:35 MS/extremity: Positive for erythema, pain, swelling, tenderness, of the long side of cp right hand, Negative for injury or acute deformity, decreased range of motion, paresthesias, 20:35 Constitutional: Negative for body aches, chills, fever, cp 20:35 Respiratory: Negative for cough, shortness of breath, wheezing, 20:35 Abdomen/GI: Negative for abdominal pain, nausea, vomiting, and diarrhea, 20:35 Neuro: Negative for altered mental status, dizziness, headache, weakness, 20:35 All other systems are negative, Exam: 20:40 Constitutional: The patient appears in no acute distress, alert, awake, cp non-diaphoretic, non-toxic, well developed, well nourished, 20:40 Head/Face: Normocephalic, atraumatic. cp 20:40 Eyes: Periorbital structures: appear normal, Conjunctiva: normal, no exudate, no injection, Sclera: no appreciated abnormality, Lids and lashes: appear normal, bilaterally, 20:40 ENT: External ear(s): are unremarkable, Nose: is normal, Mouth: Lips: moist, Oral mucosa: moist, Posterior pharynx: Airway: no evidence of obstruction, patent, 20:40 Chest/axilla: Inspection: normal, 20:40 Cardiovascular: Rate: normal, Rhythm: regular, Pulses: Pulses are 2+ in right radial artery. 20:40 Respiratory: the patient does not display signs of respiratory distress, Respirations: normal, no use of accessory muscles, no retractions, labored breathing, is not present, Breath sounds: are clear throughout, 20:40 Abdomen/GI: Exam negative for discomfort, distension, guarding, Inspection: abdomen appears normal, 20:40 Musculoskeletal/extremity: Extremities: noted in the palmar aspect of right hand: mild erythema mid proximal palm that advances proximally, small central area of swelling, mild general swelling, tenderness to palpation, Vital Signs: 20:12 BP 167 / 94; Pulse 92; Resp 16; Temp 98; Pulse Ox 100% ; Weight 72.57 kg; Height 5 ft. dd2 9 in. ; Pain 6/10; 22:48 BP 142 / 79; Pulse 87; Resp 18 S; Temp 97.9(O); Pulse Ox 100% on R/A; ha1 20:12 Body Mass Index 23.63 (72.57 kg, 175.26 cm) dd2 20:12 Pain Scale: Adult dd2 MDM: 20:22 Medical Screening Exam initiated cp 21:00 Differential diagnosis: cellulitis, abscess, foreign body. cp 21:28 Independent interpretation of the following test(s) in the Emergency Department X-Ray: cp My interpretation is images of right hand negative for fracture, negative for foreign body. 22:15 Data reviewed: vital signs, nurses notes, radiologic studies, plain films, and as a cp result, I will discharge patient. 22:15 Counseling: I had a detailed discussion with the patient and/or guardian regarding the cp historical points, exam findings, and any diagnostic results supporting the discharge/admit diagnosis, radiology results, to return to the emergency department if symptoms worsen or persist or if there are any questions or concerns that arise at home. 22:15 Response to treatment: the patient's symptoms have markedly improved after treatment, cp and as a result, I will discharge patient. 04/01 20:30 Order name: XRAY Hand RIGHT 3 View; Complete Time: 21:40 cp Administered Medications: 20:39 Not Given (Patient Refused): hydrocodone-acetaminophen(7.5 mg-325 mg) 1 tabs PO once; me1 RASS on ADMIN: Combtv4, Very Agttd3, Agttd2, Rstlss1, AlertClm0, Drwsy-1, Lt Sdtn-2, Mod Sdtn-3, Dp Sdtn-4, UnArsble-5 20:39 Drug: Ibuprofen PO 800 mg PO once Route: PO; me1 21:20 Follow up: Response: No adverse reaction; Pain is decreased ha1 22:41 Drug: Doxycycline PO 200 mg PO once Route: PO; dd2 22:50 Follow up: Response: No adverse reaction ha1 22:41 Drug: Lidocaine Infiltration (2 %) 5 ml 5 ml Infiltration once; to bedside {Note: dd2 Administered by AMANDEEP Lock.} Volume: 5 ml; Route: Infiltration; Site: affected area; 22:49 Follow up: Response: No adverse reaction ha1 Disposition: 04/02 01:53 Co-signature as Attending Physician, Cristian Cruz MD I agree with the assessment sp4 and plan of care. I reviewed the patient's care provided by the Advanced Practice Provider and agree with the diagnosis and treatment plan. 22:44 Chart complete. cp Disposition Summary: 04/01/25 22:15 Discharge Ordered Notes: Location: Home cp Problem: new cp Symptoms: have improved cp Condition: Stable cp Diagnosis - Cellulitis of right upper limb cp Followup: cp - With: Private Physician - When: 2 - 3 days - Reason: Worsening of condition Discharge Instructions: - Discharge Summary Sheet cp - Cellulitis, Adult cp Forms: - Medication Reconciliation Form cp - Antibiotic Education cp - Prescription Opioid Use cp - Patient Portal Instructions cp - Leadership Thank You Letter cp Prescriptions: - Ibuprofen 800 mg Oral Tablet - take 1 tablet ORAL route every 8 hours As needed take with food; 30 tablet; cp Refills: 0, Product Selection Permitted - Doxycycline Hyclate 100 mg Oral Tablet - take 1 tablet ORAL route every 12 hours; 20 tablet; Refills: 0, Product cp Selection Permitted Signatures: Dispatcher [employer] EDLA Albert Valencia PA PA cp Potepalov, Sergey, MD MD sp4 Eileen Cordon RN RN me1 ABELARDO PEREZ RN RN dd2 Valeri Simpson RN ha1 Corrections: (The following items were deleted from the chart) 22:42 04/01 20:40 Musculoskeletal/extremity: Extremities: noted in the palmar aspect of right cp hand: mild erythema mid proximal palm that advances proximally, small abscess, mild swelling, tenderness to palpation, cp
--- NOTE | 2025-04-01 22:15 | ER ---
Nurse's Notes [facility] Name: Dario Biswas Age: 49 yrs Sex: Male : 1975 Arrival Date: 04/01/2025 Time: 19:53 Bed 11 Private MD: Diagnosis: Cellulitis of right upper limb Presentation: 04/01 20:12 Chief complaint: Patient states: RT HAND PAIN AND SWELLING, ABSCESS TO RT PALM X4 DAYS. dd2 REPORTS REDNESS TRAVELING UP THE RT ARM THAT BEGAN TODAY. Coronavirus screen: At this time, the client does not indicate any symptoms associated with coronavirus-19. Ebola Screen: No symptoms or risks identified at this time. Initial Sepsis Screen: Does the patient meet any 2 criteria? No. Patient's initial sepsis screen is negative. Does the patient have a suspected source of infection? No. Patient's initial sepsis screen is negative. Risk Assessment: Do you want to hurt yourself or someone else? Patient reports no desire to harm self or others. Onset of symptoms was March 28, 2025. 20:12 Method Of Arrival: Ambulatory dd2 20:12 Acuity: TRISTIN 3 dd2 Triage Assessment: 20:16 General: Appears in no apparent distress. uncomfortable, Behavior is calm, cooperative, dd2 appropriate for age. Pain: Complains of pain in heel of right hand and palmar aspect of right wrist Pain currently is 6 out of 10 on a pain scale. Derm: Wound noted heel of right hand Reports pain that is 6 out of 10 on a pain scale. Historical: - Allergies: 20:16 Amoxicillin; dd2 20:16 PENICILLINS; dd2 - PMHx: 20:16 diabetes mellitus; Hyperthyroidism; dd2 - PSHx: 20:16 None; dd2 - Immunization history:: Adult Immunizations up to date. - Infectious Disease History:: Denies. - Social history:: Smoking status: Patient reports the use of cigarette tobacco products, smokes one-half pack cigarettes per day. Screenin:30 [facility] ED Fall Risk Assessment (Adult) History of falling in the last 3 months, me1 including since admission No falls in past 3 months (0 pts) Confusion or Disorientation No (0 pts) Intoxicated or Sedated No (0 pts) Impaired Gait No (0 pts) Mobility Assist Device Used No (0 pt) Altered Elimination No (0 pt) Score/Fall Risk Level 0 - 2 = Low Risk Maintained a safe environment, Provided non-skid footwear, Hourly rounding (assess needs \T\ fall precautionary measures) done. Abuse screen: Denies threats or abuse. Nutritional screening: No deficits noted. Tuberculosis screening: No symptoms or risk factors identified. Assessment: 20:30 General: Appears uncomfortable, well groomed, well developed, well nourished, Behavior me1 is calm, cooperative, appropriate for age, Reports RT HAND PAIN AND SWELLING, ABSCESS TO RT PALM X4 DAYS. REPORTS REDNESS TRAVELING UP THE RT ARM THAT BEGAN TODAY. Pain: Complains of pain in palmar aspect of right wrist and heel of right hand Pain does not radiate. Pain currently is 6 out of 10 on a pain scale. Quality of pain is described as aching, Pain began gradually, Is continuous. Neuro: Level of Consciousness is awake, alert, obeys commands, Oriented to person, place, time, situation, Appropriate for age. Cardiovascular: Patient's skin is warm and dry. Respiratory: Airway is patent Respiratory effort is even, unlabored, Respiratory pattern is regular, symmetrical. GI: No signs and/or symptoms were reported involving the gastrointestinal system. : No signs and/or symptoms were reported regarding the genitourinary system. EENT: No signs and/or symptoms were reported regarding the EENT system. Derm: Wound noted palmar aspect of right wrist and heel of right hand Wound is abscess. red, warm, swollen. Musculoskeletal: Reports pain in right hand. 22:47 Reassessment: Patient and/or family updated on plan of care and expected duration. Pain ha1 level reassessed. Patient is alert, oriented x 3, equal unlabored respirations, skin warm/dry/pink. Patient states feeling better. Patient states symptoms have improved. Vital Signs: 20:12 BP 167 / 94; Pulse 92; Resp 16; Temp 98; Pulse Ox 100% ; Weight 72.57 kg; Height 5 ft. dd2 9 in. ; Pain 6/10; 22:48 BP 142 / 79; Pulse 87; Resp 18 S; Temp 97.9(O); Pulse Ox 100% on R/A; ha1 20:12 Body Mass Index 23.63 (72.57 kg, 175.26 cm) dd2 20:12 Pain Scale: Adult dd2 ED Course: 19:58 Patient arrived in ED. gm2 20:10 Albert Valencia PA is PHCP. cp 20:10 Cristian Cruz MD is Attending Physician. cp 20:16 Triage completed. dd2 20:16 Arm band placed on left wrist. dd2 20:19 Eileen Cordon, RN is Primary Nurse. me1 20:30 Patient has correct armband on for positive identification. Bed in low position. Call me1 light in reach. Side rails up X 1. Provided Education on: POC. Verbalized understanding. 20:30 No provider procedures requiring assistance completed. me1 21:19 XRAY Hand RIGHT 3 View In Process Unspecified. EDMS 22:49 Patient did not have IV access during this emergency room visit. ha1 Administered Medications: 20:39 Not Given (Patient Refused): hydrocodone-acetaminophen(7.5 mg-325 mg) 1 tabs PO once; me1 RASS on ADMIN: Combtv4, Very Agttd3, Agttd2, Rstlss1, AlertClm0, Drwsy-1, Lt Sdtn-2, Mod Sdtn-3, Dp Sdtn-4, UnArsble-5 20:39 Drug: Ibuprofen PO 800 mg PO once Route: PO; me1 21:20 Follow up: Response: No adverse reaction; Pain is decreased ha1 22:41 Drug: Doxycycline PO 200 mg PO once Route: PO; dd2 22:50 Follow up: Response: No adverse reaction ha1 22:41 Drug: Lidocaine Infiltration (2 %) 5 ml 5 ml Infiltration once; to bedside {Note: dd2 Administered by AMANDEEP Lock.} Volume: 5 ml; Route: Infiltration; Site: affected area; 22:49 Follow up: Response: No adverse reaction ha1 Medication: 20:30 VIS not applicable for this client. me1 Outcome: 22:15 Discharge ordered by . cp 22:49 Discharged to home ambulatory, with family, ha1 22:49 Condition: stable 22:49 Discharge instructions given to patient, family, Instructed on discharge instructions, follow up and referral plans. medication usage, Demonstrated understanding of instructions, follow-up care, medications, Prescriptions given X 2, 22:50 Patient left the ED. ha1 Signatures: Dispatcher [employer] EDKS Albert Valencia PA PA cp Simpson, Valeri, RN RN ha1 Eileen Cordon RN RN me1 Ly Cabral gm2 ABELARDO PEREZ RN RN dd2 Corrections: (The following items were deleted from the chart) 20:30 20:12 Chief complaint: Patient states: RT HAND PAIN AND SWELLING, ABSCESS TO RT PALM X4 me1 DAYS. REPORTS REDNESS TRAVELING UP THE RT ARM THAT BEGAN TODAY dd2
[2025-04-01] MEDS ORDERED: DOXYCYCLINE 100 MG CAP PO ONE (22:40)
[2025-04-01 23:02] VITALS: O2SAT 100
[2025-04-01 23:04] VITALS: BP 142/79; TEMP 97.9
== END 2025-04-01 22:50 | disposition home or self-care (01) ==
LOC: ER 19:53
DX: L03.113 Cellulitis of right upper limb (principal); F17.210 Nicotine dependence, cigarettes, uncomplicated
CPT/HCPCS: 73130; 99283; J2003